=== PATIENT | male | born 1950 | race Two or more races ===

== ENCOUNTER 2019-03-31 17:15 | Inpatient (IN) | payer MEDICAID ==
[~2019-03-31] VITALS: Ht 175.3 cm; Wt 94.8 kg
[2019-03-31 17:25] VITALS: BP 122/97
--- NOTE | 2019-03-31 17:26 | Emergency Room Report ---
History of Present Illness General Chief Complaint: Generalized Weakness Source: Medical Record, EMS Present Illness HPI 68-year-old male past medical history of heart disease, hypertension, presents with hypotension x1 day unknown aggravating relieving factors severity is severe , constant, patient is mildly altered. History is limited. Patient keeps saying thank you Allergies: Coded Allergies: No Known Allergies (Unverified , 03/31/19) Patient History Limited by: medical condition - Altered mental status Past Medical History: see triage record Reviewed Nursing Documentation: PMH: Agreed; PSxH: Agreed Nursing Documentation-PMH Hx Cardiac Problems: Yes - CHF Hx Hypertension: Yes Review of Systems All Other Systems: limited - Altered mental status Physical Exam Vital Signs Date Time Temp Pulse Resp B/P (MAP) Pulse Ox O2 Delivery O2 Flow Rate FiO2 03/31/19 17:21 98.1 80 16 122/97 (105) 99 Room Air Sp02 EP Interpretation: reviewed, normal General Appearance: alert, moderate distress Head: normocephalic, atraumatic Eyes: bilateral eye PERRL, bilateral eye EOMI ENT: uvula midline, moist mucus membranes Neck: supple, thyroid normal, supple/symm/no masses Respiratory: lungs clear, no respiratory distress, no retraction, no accessory muscle use Cardiovascular #1: normal peripheral pulses, regular rate, rhythm, no edema, no gallop, no murmur Gastrointestinal: non tender, soft, no guarding, no rebound Musculoskeletal: normal inspection Neurologic: alert, responsive, other - Mildly altered keep saying thank you Psychiatric: mood/affect normal Skin: no rash, warm/dry Procedures Critical Care Time Critical Care Time Given the critical condition in which the patient arrived, the patient was immediately assessed by myself and the nurse, and cardiac monitoring initiated due to the potential for rapid decompensation of the patient's clinical condition. During the course of the patient's stay, I spent a considerable amount of time at the bedside performing serial re-evaluations of the patient's hemodynamic and clinical status because of the recognized potential threat to life or limb in this condition. I then had a chance to review not only all of the available current laboratory and radiographic studies obtained today, but I also reviewed old records available to me at the time. Additionally, any ancillary information available including seam closer records were reviewed. Sequential vital signs were obtained. Critical Care time of 36 minutes was performed exclusive of billable procedures. Central Line Central Line : Consent: Emergent Central Line Lumen: triple Maximal Sterile Barrier Tech: yes cap, yes mask, yes sterile gown, yes sterile gloves, yes large sterile sheet, yes hand hygiene, yes chlorhexidine prep Central Line Postion: femoral (R) Anesthesia: Lidocaine cc's of anesthesia: 5 Complications: none Central Line Post Position: sutured, good blood return Attempts: One Patient Tolerated: Well Complications: None Medical Decision Making Diagnostic Impression: Primary Impression: Hypotension Qualified Codes: I95.9 - Hypotension, unspecified Additional Impressions: ESAU (acute kidney injury) UTI (urinary tract infection) Qualified Codes: N30.00 - Acute cystitis without hematuria Sepsis Qualified Codes: A41.9 - Sepsis, unspecified organism; R65.20 - Severe sepsis without septic shock; N17.9 - Acute kidney failure, unspecified AMS (altered mental status) Qualified Codes: R41.82 - Altered mental status, unspecified ER Course 68-year-old male presents with altered mental status, ESAU, UTI Concerning for sepsis, central line placed emergently in the right femoral, patient keeps saying thank you unsure if patient is baseline We will start broad-spectrum antibiotics, fluid resuscitation Patient is slowly improving blood pressure slowly improving over 70 Reevaluation 7:33 PM, blood pressure is 87 systolic will start norepinephrine Patient admitted to Dr. Longo Laboratory Tests Test 03/31/19 17:52 03/31/19 18:15 White Blood Count 8.8 K/UL (4.8-10.8) Red Blood Count 5.25 M/UL (4.70-6.10) Hemoglobin 16.8 G/DL (14.2-18.0) Hematocrit 48.6 % (42.0-52.0) Mean Corpuscular Volume 93 FL (80-99) Mean Corpuscular Hemoglobin 32.0 PG (27.0-31.0) H Mean Corpuscular Hemoglobin Concent 34.6 G/DL (32.0-36.0) Red Cell Distribution Width 12.5 % (11.6-14.8) Platelet Count 173 K/UL (150-450) Mean Platelet Volume 7.2 FL (6.5-10.1) Neutrophils (%) (Auto) 58.6 % (45.0-75.0) Lymphocytes (%) (Auto) 28.5 % (20.0-45.0) Monocytes (%) (Auto) 9.7 % (1.0-10.0) Eosinophils (%) (Auto) 2.0 % (0.0-3.0) Basophils (%) (Auto) 1.1 % (0.0-2.0) Prothrombin Time 13.4 SEC (9.30-11.50) H Prothrombin Time INR 1.3 (0.9-1.1) H PTT 32 SEC (23-33) Urine Color Yellow Urine Appearance Clear Urine pH 5 (4.5-8.0) Urine Specific [place] 1.010 (1.005-1.035) Urine Protein 1+ (NEGATIVE) H Urine Glucose (UA) Negative (NEGATIVE) Urine Ketones Negative (NEGATIVE) Urine Blood 5+ (NEGATIVE) H Urine Nitrite Negative (NEGATIVE) Urine Bilirubin Negative (NEGATIVE) Urine Urobilinogen 1 MG/DL (0.0-1.0) H Urine Leukocyte Esterase 1+ (NEGATIVE) H Urine RBC 10-15 /HPF (0 - 0) H Urine WBC 5-10 /HPF (0 - 0) H Urine Squamous Epithelial Cells None /LPF (NONE/OCC) Urine Bacteria Moderate /HPF (NONE) H Urine Fine Granular Casts 2-4 /LPF (NONE) H Sodium Level 136 MMOL/L (136-145) Potassium Level 4.5 MMOL/L (3.5-5.1) Chloride Level 102 MMOL/L (98-107) Carbon Dioxide Level 28 MMOL/L (21-32) Anion Gap 6 mmol/L (5-15) Blood Urea Nitrogen 25 mg/dL (7-18) H Creatinine 1.8 MG/DL (0.55-1.30) H Estimate Glomerular Filtration Rate 37.7 mL/min (>60) Glucose Level 98 MG/DL (74-106) Calcium Level 8.7 MG/DL (8.5-10.1) Phosphorus Level 3.6 MG/DL (2.5-4.9) Magnesium Level 2.2 MG/DL (1.8-2.4) Total Bilirubin 1.1 MG/DL (0.2-1.0) H Direct Bilirubin 0.2 MG/DL (0.0-0.3) Aspartate Amino Transferase (AST) 19 U/L (15-37) Alanine Aminotransferase (ALT) 21 U/L (12-78) Alkaline Phosphatase 73 U/L (46-116) Total Creatine Kinase 50 U/L (26-308) Creatine Kinase MB 0.8 NG/ML (0.0-3.6) Creatine Kinase MB Relative Index 1.6 Troponin I 0.000 ng/mL (0.000-0.056) Pro-B-Type Natriuretic Peptide 737 pg/mL (0-125) H Total Protein 6.7 G/DL (6.4-8.2) Albumin 3.3 G/DL (3.4-5.0) L Globulin 3.4 g/dL Albumin/Globulin Ratio 1.0 (1.0-2.7) Lipase 210 U/L (73-393) Lactic Acid Level 1.40 mmol/L (0.4-2.0) EKG Diagnostic Results EKG Time: 17:13 EP Interpretation: Atrial fibrillation, rate 84, QTc 387, no acute ST elevations, left axis de Rhythm Strip Diag. Results Rhythm Strip Time: 19:31 EP Interpretation: yes Rate: 71 Rhythm: other - Atrial fibrillation Chest X-Ray Diagnostic Results Chest X-Ray Diagnostic Results : Chest X-Ray Ordered: Yes # of Views/Limited/Complete: 1 View Indication: Other - AMS EP Interpretation: Yes Interpretation: no consolidation, no effusion, no pneumothorax, no acute cardiopulmonary disease Impression: No acute disease Electronically Signed by: Diaz Ibarra MD Last Vital Signs Date Time Temp Pulse Resp B/P (MAP) Pulse Ox O2 Delivery O2 Flow Rate FiO2 03/31/19 17:21 98.1 80 16 122/97 (105) 99 Room Air Disposition: ADMITTED INPATIENT Condition: Serious Diaz Ibarra MD Mar 31, 2019 17:26
--- NOTE | 2019-03-31 17:28 | NUR ---
ED Nurse Note: Pt brought in by ambulance from an assisted living facility due to low blood pressure of 77/53. Pt was reported for not feeling well x 2 days. Denies CP or SOB. 350ml of NS was given en route. AAO x4 follows commands. Pt noted to be slow in answering questions. Respirations are even and non labored.
[2019-03-31 18:10] VITALS: BP 70/53
--- NOTE | 2019-03-31 18:10 | NUR ---
ED Nurse Note: SBP dropped down to 70/53. Dr Ibarra aware. Pt placed on trendeleberg position.
[2019-03-31 18:16] LABS: APPEARANCE,URINE CLEAR; BILIRUBIN, URINE NEGATIVE (NEGATIVE); GLUCOSE, URINE (UA) NEGATIVE (NEGATIVE); KETONES,URINE NEGATIVE (NEGATIVE); LEUKOCYTE ESTERASE ,URINE 1+ (NEGATIVE); NITRITE,URINE NEGATIVE (NEGATIVE); PH,URINE 5 (4.5-8.0); PROTEIN,URINE 1+ (NEGATIVE); UROBILINOGEN,URINE 1 MG/DL (0.0-1.0)
[2019-03-31 18:19] LABS: COLOR,URINE YELLOW; INR 1.3 (0.9-1.1)
[2019-03-31 18:21] LABS: ANION GAP 6 mmol/L (5-15); BASOPHILS % (AUTO) 1.1 % (0.0-2.0); BLOOD UREA NITROGEN 25 mg/dL (7-18); CALCIUM 8.7 MG/DL (8.5-10.1); CARBON DIOXIDE 28 MMOL/L (21-32); CHLORIDE 102 MMOL/L (98-107); CREATININE 1.8 MG/DL (0.55-1.30); HEMATOCRIT 48.6 % (42.0-52.0); HEMOGLOBIN 16.8 G/DL (14.2-18.0); LYMPHOCYTES % (AUTO) 28.5 % (20.0-45.0); MEAN CORPUSCULAR VOLUME 93 FL (80-99); MONOCYTES % (AUTO) 9.7 % (1.0-10.0); NEUTROPHILS % (AUTO) 58.6 % (45.0-75.0); PLATELET COUNT 173 K/UL (150-450); POTASSIUM 4.5 MMOL/L (3.5-5.1); RED BLOOD COUNT 5.25 M/UL (4.70-6.10); RED CELL DISTRIBUTION WIDTH 12.5 % (11.6-14.8); SODIUM 136 MMOL/L (136-145); WHITE BLOOD COUNT 8.8 K/UL (4.8-10.8)
[2019-03-31] MEDS ORDERED: Vancomycin 1.5gm/NS Premix 275 ML IVPB SCH (18:30)
[2019-03-31] MEDS ORDERED: fentaNYL 100 mcg/2 mL IV ONE (18:30)
[2019-03-31] MEDS ORDERED: Lidocaine 1% 10mg/ml/Epi 0.005mg/ml 10ml vial INJ ONE (18:30)
[2019-03-31] MEDS ORDERED: Cefepime HCl 2 GM in D5W 55 ML IVPB ONE (18:30)
[2019-03-31] MEDS ORDERED: fentaNYL 100 mcg/2 mL ONE (18:31)
[2019-03-31 18:34] LABS: ALANINE AMINOTRANSFERASE 21 U/L (12-78); ALBUMIN 3.3 G/DL (3.4-5.0); ALKALINE PHOSPHATASE 73 U/L (46-116); ASPARTATE AMINO TRANSFERASE 19 U/L (15-37); BILIRUBIN,TOTAL 1.1 MG/DL (0.2-1.0); CKMB 0.8 NG/ML (0.0-3.6); CREATINE KINASE 50 U/L (26-308); PHOSPHORUS 3.6 MG/DL (2.5-4.9)
[2019-03-31 18:37] LABS: BILIRUBIN,DIRECT 0.2 MG/DL (0.0-0.3)
--- NOTE | 2019-03-31 18:45 | NUR ---
ED Nurse Note: Consent signed by patient for right femoral central line with Dr Ibarra.
--- NOTE | 2019-03-31 19:16 | NUR ---
HAND-OFF: Report given to Марина AGUAYO.
[2019-03-31 19:19] VITALS: BP 93/68
--- NOTE | 2019-03-31 19:19 | NUR ---
ED Nurse Note: Received report from Emelyn AGUAYO. Patient alert and oriented, verbally responsive. No SOB. Breathing even and unlabored. BP 93/68, md aware.
[2019-03-31] MEDS ORDERED: Vancomycin 1.5 GM in NS 275 ML IVPB ONE (21:00)
[2019-03-31 21:30] VITALS: BP 99/77
--- NOTE | 2019-03-31 21:30 | NUR ---
ED Nurse Note: Report given to Isiah AGUAYO from ICU.
[2019-03-31] MEDS ORDERED: XARELTO10 MG ORAL (21:34)
[2019-03-31] MEDS ORDERED: LIPITOR40 MG ORAL (21:34)
--- NOTE | 2019-03-31 21:40 | NUR ---
TRANSFER TO FLOOR: Patient transferred to ICU as ordered. Report given to Isiah AGUAYO. Patient is alert abnd oriented, verbally responsive. Currently on Norepi and Vanco patent and infusing well. IV line on right leg central line, Right AC 20g, L hand 20g patent and intact. Belongings list done. No skin issues noted. Belongings was given to patient. Afebrile. VSS.
[2019-03-31 22:00] VITALS: BP 116/84
--- NOTE | 2019-03-31 22:00 | NUR ---
NURSE NOTES: Patient is transferred from ED via gurney. Patient is alert and oriented x4. Right femoral TLC intact with dry blood and running vanco 1.5g, NS bolus and levophed 2mcg/min. Vital signs stable. No acute distress/SOB noted. Patient said headache 2/10, aching. Skin intact and clean. Kept dry, clean and comfortable. Call light placed in easy reach. Will continue plan of care.
--- NOTE | 2019-03-31 22:14 | NUR ---
NURSE NOTES: Called Dr. Longo and left message for admission orders.
--- NOTE | 2019-03-31 22:44 | NUR ---
NURSE NOTES: Called Dr. Longo. He said he will call back after 15min.
[2019-03-31 23:00] VITALS: BP 126/85
--- NOTE | 2019-03-31 23:53 | NUR ---
NURSE NOTES: Received admission orders from Dr. Longo. Will continue plan of care.
[2019-04-01] VITALS (18 sets, daily range): BP systolic 91–137; BP diastolic 43–94
--- NOTE | 2019-04-01 00:15 | NUR ---
NURSE NOTES: Patient is saying he has asthma and if he can have breathing Tx. Called Dr. Longo and new order carried out.
[2019-04-01] MEDS ORDERED: Albuterol/Ipratropium 3ml neb HHN PRN ×2 (00:30→16:00)
[2019-04-01] MEDS: D5NS 1,000 ML IV SCH ×3 (00:33→15:45)
--- NOTE | 2019-04-01 00:35 | NUR ---
Note kleverone in EDM - 04/01/19 at 0042 by ALONDRA TRANSFER TO FLOOR: Patient transferred to ICU as ordered. Report given to Isiah AGUAYO. Patient is alert abnd oriented, verbally responsive. Currently on Norepi and Vanco patent and infusing well. IV line on right leg central line, Right AC 20g, L hand 20g patent and intact. Belongings list done. No skin issues noted. Belongings was given to patient. Afebrile. VSS.
--- NOTE | 2019-04-01 00:48 | NUR ---
NURSE NOTES: Beatrice/RT is at the bedside for breathing Tx.
[2019-04-01] MEDS ORDERED: Vancomycin 1.5 GM in NS 275 ML IVPB SCH ×2 (01:00→23:00)
--- NOTE | 2019-04-01 03:10 | NUR ---
NURSE NOTES: Changed right femoral TLC dressing. No bleeding no redness noted.
--- NOTE | 2019-04-01 04:00 | NUR ---
NURSE NOTES: Extra blanket given per patient request. Afebrile. BP stable, levo off.
--- NOTE | 2019-04-01 04:30 | NUR ---
NURSE NOTES: EKG done. Put it in the chart.
[2019-04-01 05:31] LABS: BASOPHILS % (AUTO) 0.9 % (0.0-2.0); EOSINOPHILS % (AUTO) 1.9 % (0.0-3.0); HEMATOCRIT 41.9 % (42.0-52.0); HEMOGLOBIN 14.6 G/DL (14.2-18.0); LYMPHOCYTES % (AUTO) 26.6 % (20.0-45.0); MEAN CORPUSCULAR VOLUME 93 FL (80-99); MONOCYTES % (AUTO) 8.8 % (1.0-10.0); NEUTROPHILS % (AUTO) 61.8 % (45.0-75.0); PLATELET COUNT 162 K/UL (150-450); RED BLOOD COUNT 4.51 M/UL (4.70-6.10); RED CELL DISTRIBUTION WIDTH 13.5 % (11.6-14.8); WHITE BLOOD COUNT 7.7 K/UL (4.8-10.8)
[2019-04-01 05:44] LABS: ALANINE AMINOTRANSFERASE 20 U/L (12-78); ALBUMIN 2.9 G/DL (3.4-5.0); ALKALINE PHOSPHATASE 69 U/L (46-116); ANION GAP 5 mmol/L (5-15); ASPARTATE AMINO TRANSFERASE 16 U/L (15-37); BILIRUBIN,TOTAL 0.6 MG/DL (0.2-1.0); BLOOD UREA NITROGEN 18 mg/dL (7-18); CALCIUM 7.7 MG/DL (8.5-10.1); CARBON DIOXIDE 27 MMOL/L (21-32); CHLORIDE 109 MMOL/L (98-107); CREATININE 1.4 MG/DL (0.55-1.30); PHOSPHORUS 2.3 MG/DL (2.5-4.9); POTASSIUM 4.3 MMOL/L (3.5-5.1); SODIUM 141 MMOL/L (136-145)
--- NOTE | 2019-04-01 06:00 | NUR ---
NURSE NOTES: Empty urinal. 200ml output.
--- NOTE | 2019-04-01 07:27 | NUR ---
HAND-OFF: Report given to DEDE Arroyo. Endorsed plan of care.
--- NOTE | 2019-04-01 08:15 | NUR ---
NURSE NOTES: Report received from DEDE Joyce. Patient afebrile at this time , on room air with no apparent acute distress .Pt is AFIB on the monitor and asymptomatic at this time.Patient is alert and oriented x 4, yi and luxembourger speaking with small Irish, able to make needs known at all the time.Abdomen soft and non distended with bowel sounds present in all 4 quadrants. Bilateral lungs sounds diminished. Patient assisted with mouth care done,able to turned and repositioned for skin management.HOB elevated to prevent aspiration.On cardiac diet and tolerate well at this time.Consumed 100% at breakfast.Patient use urinal , urine yellow straw with no apparent sediment . 3/4 Side rails up for safety precaution and turning and repositioning.Bed in low position and locked with bed alarm on.Call light within easy reach, will continue to monitor.
[2019-04-01] MEDS ORDERED: Xarelto 10mg tab ORAL SCH (09:00)
[2019-04-01] MEDS ORDERED: Cefepime HCl 1 GM in D5W 55 ML IVPB SCH (09:00)
[2019-04-01] MEDS ORDERED: Pantoprazole Inj IVP SCH (09:00)
--- NOTE | 2019-04-01 10:10 | Diagnostic Imaging Report ---
Indication:Elevated Bun and Creatinine. Technique: Grayscale and duplex Doppler imaging of the kidneys performed. Comparison: None Findings: The size, contour, and echogenicity of both kidneys are within normal limits. There is a right renal cyst 2.5 cm. Another right cyst 2.2 cm noted. The right kidney measures 9.2 cm. in length. The left kidney measures 10.9 cm. in length. There is a minimal hydronephrosis present within the left kidney. The IVC is patent. Urinary bladder is unremarkable. IMPRESSION: Minimal left hydronephrosis. Consider further evaluation as warranted clinically. Cysts within the right kidney
--- NOTE | 2019-04-01 10:34 | NUR ---
NURSE NOTES: Patient seen by Dr Rosario and made aware episode of Afib, Cardiac consult added with Dr Jackson.Order to transfer pt to Tele.Will follow up with other new orders.patient remains afib on the monitor and asymptomatic.Encourage to turned and repositioned.Kept on close monitoring.
--- NOTE | 2019-04-01 11:04 | Consultation ---
History of Present Illness General Date patient seen: Apr 01, 2019 Chief Complaint: Generalized Weakness Present Illness HPI 68-year-old male with PMHx of atrial fibrillation, on Xarelto, hypertension, presented ER by paramedics with CC of hypotension for one day History is limited. Pt is a poor historian and doesn't give much information. He was started on Levophed in ER and transferred to ICU. Currently pt looks comfortable and asymptomatic. Allergies: Coded Allergies: No Known Allergies (Unverified , 03/31/19) Medication History Scheduled Atorvastatin Calcium* (Lipitor*), 40 MG ORAL BEDTIME, (Reported) Rivaroxaban (Xarelto*), 10 MG ORAL DAILY, (Reported) Patient History Healthcare decision maker N Resuscitation status Full Code Advanced Directive on File No Past Medical/Surgical History Past Medical/Surgical History: (1) Atrial fibrillation Family History Family History: (1) Chronic anticoagulation (2) Atrial fibrillation Review of Systems All Other Systems: negative except mentioned in HPI Physical Exam General Appearance: WD/WN, no apparent distress Lines, tubes and drains: peripheral HEENT: normocephalic, atraumatic Neck: non-tender, normal alignment Respiratory/Chest: chest wall non-tender, lungs clear Cardiovascular/Chest: normal peripheral pulses, normal rate Abdomen: normal bowel sounds Genitourinary/Rectal: normal genital exam, normal rectal exam Last 24 Hour Vital Signs Date Time Temp Pulse Resp B/P (MAP) Pulse Ox O2 Delivery O2 Flow Rate FiO2 04/01/19 10:00 71 22 129/87 (101) 96 04/01/19 09:00 98.0 77 19 137/78 (97) 98 04/01/19 08:00 Room Air 04/01/19 08:00 64 04/01/19 08:00 63 22 110/66 (81) 98 04/01/19 07:00 98 22 94/67 (76) 97 04/01/19 06:51 53 23 96 Room Air 21 04/01/19 06:00 63 21 102/50 (67) 97 04/01/19 05:00 60 24 91/43 (59) 97 04/01/19 04:00 97.7 80 20 115/68 (84) 99 04/01/19 04:00 66 04/01/19 04:00 Room Air 04/01/19 03:00 73 16 99/50 (66) 99 04/01/19 02:00 73 26 116/77 (90) 97 04/01/19 01:00 96 23 111/74 (86) 96 04/01/19 00:48 93 24 100 Room Air 04/01/19 00:47 93 24 100 96 26 97 04/01/19 00:00 97.6 97 25 112/74 (87) 95 04/01/19 00:00 111 04/01/19 00:00 Room Air 03/31/19 23:00 99 24 126/85 (99) 95 03/31/19 22:30 Room Air 03/31/19 22:00 79 03/31/19 22:00 97.6 82 20 116/84 (95) 95 03/31/19 21:40 98.7 88 19 99/77 99 Room Air 03/31/19 21:30 98.7 88 20 99/77 99 Room Air 03/31/19 20:35 102/62 03/31/19 19:19 98.1 70 19 93/68 99 Room Air 03/31/19 18:10 98.1 65 17 70/53 100 Room Air 03/31/19 17:25 75 15 Room Air 03/31/19 17:25 98.1 75 15 122/97 99 Room Air 03/31/19 17:21 98.1 80 16 122/97 (105) 99 Room Air Intake and Output 03/31/19 04/01/19 18:59 06:59 Intake Total 1000 ml 768.75 ml Output Total 880 ml Balance 1000 ml -111.25 ml Intake Oral 360 ml IV Total 1000 ml 408.75 ml Output Urine Total 880 ml # Voids 1 Laboratory Tests Test 03/31/19 17:52 03/31/19 18:15 04/01/19 04:00 White Blood Count 8.8 K/UL (4.8-10.8) 7.7 K/UL (4.8-10.8) Red Blood Count 5.25 M/UL (4.70-6.10) 4.51 M/UL (4.70-6.10) L Hemoglobin 16.8 G/DL (14.2-18.0) 14.6 G/DL (14.2-18.0) Hematocrit 48.6 % (42.0-52.0) 41.9 % (42.0-52.0) L Mean Corpuscular Volume 93 FL (80-99) 93 FL (80-99) Mean Corpuscular Hemoglobin 32.0 PG (27.0-31.0) H 32.3 PG (27.0-31.0) H Mean Corpuscular Hemoglobin Concent 34.6 G/DL (32.0-36.0) 34.9 G/DL (32.0-36.0) Red Cell Distribution Width 12.5 % (11.6-14.8) 13.5 % (11.6-14.8) Platelet Count 173 K/UL (150-450) 162 K/UL (150-450) Mean Platelet Volume 7.2 FL (6.5-10.1) 7.1 FL (6.5-10.1) Neutrophils (%) (Auto) 58.6 % (45.0-75.0) 61.8 % (45.0-75.0) Lymphocytes (%) (Auto) 28.5 % (20.0-45.0) 26.6 % (20.0-45.0) Monocytes (%) (Auto) 9.7 % (1.0-10.0) 8.8 % (1.0-10.0) Eosinophils (%) (Auto) 2.0 % (0.0-3.0) 1.9 % (0.0-3.0) Basophils (%) (Auto) 1.1 % (0.0-2.0) 0.9 % (0.0-2.0) Prothrombin Time 13.4 SEC (9.30-11.50) H Prothromb Time International Ratio 1.3 (0.9-1.1) H Activated Partial Thromboplast Time 32 SEC (23-33) Urine Color Yellow Urine Appearance Clear Urine pH 5 (4.5-8.0) Urine Specific [place] 1.010 (1.005-1.035) Urine Protein 1+ (NEGATIVE) H Urine Glucose (UA) Negative (NEGATIVE) Urine Ketones Negative (NEGATIVE) Urine Blood 5+ (NEGATIVE) H Urine Nitrite Negative (NEGATIVE) Urine Bilirubin Negative (NEGATIVE) Urine Urobilinogen 1 MG/DL (0.0-1.0) H Urine Leukocyte Esterase 1+ (NEGATIVE) H Urine RBC 10-15 /HPF (0 - 0) H Urine WBC 5-10 /HPF (0 - 0) H Urine Squamous Epithelial Cells None /LPF (NONE/OCC) Urine Bacteria Moderate /HPF (NONE) H Urine Fine Granular Casts 2-4 /LPF (NONE) H Sodium Level 136 MMOL/L (136-145) 141 MMOL/L (136-145) Potassium Level 4.5 MMOL/L (3.5-5.1) 4.3 MMOL/L (3.5-5.1) Chloride Level 102 MMOL/L (98-107) 109 MMOL/L (98-107) H Carbon Dioxide Level 28 MMOL/L (21-32) 27 MMOL/L (21-32) Anion Gap 6 mmol/L (5-15) 5 mmol/L (5-15) Blood Urea Nitrogen 25 mg/dL (7-18) H 18 mg/dL (7-18) Creatinine 1.8 MG/DL (0.55-1.30) H 1.4 MG/DL (0.55-1.30) H Estimat Glomerular Filtration Rate 37.7 mL/min (>60) 50.4 mL/min (>60) Glucose Level 98 MG/DL (74-106) 142 MG/DL (74-106) H Calcium Level 8.7 MG/DL (8.5-10.1) 7.7 MG/DL (8.5-10.1) L Phosphorus Level 3.6 MG/DL (2.5-4.9) 2.3 MG/DL (2.5-4.9) L Magnesium Level 2.2 MG/DL (1.8-2.4) 1.8 MG/DL (1.8-2.4) Total Bilirubin 1.1 MG/DL (0.2-1.0) H 0.6 MG/DL (0.2-1.0) Direct Bilirubin 0.2 MG/DL (0.0-0.3) Aspartate Amino Transf (AST/SGOT) 19 U/L (15-37) 16 U/L (15-37) Alanine Aminotransferase (ALT/SGPT) 21 U/L (12-78) 20 U/L (12-78) Alkaline Phosphatase 73 U/L (46-116) 69 U/L (46-116) Total Creatine Kinase 50 U/L (26-308) Creatine Kinase MB 0.8 NG/ML (0.0-3.6) Creatine Kinase MB Relative Index 1.6 Troponin I 0.000 ng/mL (0.000-0.056) 0.000 ng/mL (0.000-0.056) Pro-B-Type Natriuretic Peptide 737 pg/mL (0-125) H Total Protein 6.7 G/DL (6.4-8.2) 5.9 G/DL (6.4-8.2) L Albumin 3.3 G/DL (3.4-5.0) L 2.9 G/DL (3.4-5.0) L Globulin 3.4 g/dL 3.0 g/dL Albumin/Globulin Ratio 1.0 (1.0-2.7) 1.0 (1.0-2.7) Lipase 210 U/L (73-393) Lactic Acid Level 1.40 mmol/L (0.4-2.0) 1.10 mmol/L (0.4-2.0) Microbiology Date/Time Source Procedure Growth Status 03/31/19 17:52 Urine,Clean Catch Urine Culture - Preliminary NO GROWTH Resulted 03/31/19 21:30 Rectum Received Height (Feet): 5 Height (Inches): 9.00 Weight (Pounds): 204 Medications Current Medications Medications (Trade) Dose Ordered Sig/Odalys Route PRN Reason Start Time Stop Time Status Last Admin Dose Admin Acetaminophen (Tylenol) 650 mg Q4H PRN ORAL Mild Pain/Temp > 100.5 04/01/19 01:00 05/01/19 00:59 04/01/19 01:00 Albuterol/ Ipratropium (Albuterol/ Ipratropium) 3 ml Q4H PRN HHN Shortness of Breath 04/01/19 00:30 04/06/19 00:29 04/01/19 00:49 Atorvastatin Calcium (Lipitor) 40 mg BEDTIME ORAL 04/01/19 21:00 05/01/19 20:59 Cefepime HCl 1 gm/ Dextrose 55 ml @ 110 mls/hr EVERY 12 HOURS IVPB 04/01/19 09:00 04/08/19 08:59 04/01/19 09:49 Chlorhexidine Gluconate (Eliza-Hex 2%) 1 applic DAILY@2000 TOPIC 04/01/19 20:00 05/01/19 19:59 Dextrose/Sodium Chloride 1,000 ml @ 75 mls/hr [id number] IV 03/31/19 23:45 04/30/19 23:44 04/01/19 00:33 Norepinephrine Bitartrate 4 mg/ Dextrose 250 ml @ 0 mls/hr Q24H IV 04/01/19 00:00 05/01/19 00:00 Pantoprazole (Protonix) 40 mg DAILY IVP 04/01/19 09:00 05/01/19 08:59 04/01/19 09:22 Rivaroxaban (Xarelto) 15 mg QPM ORAL 04/01/19 16:30 05/01/19 16:29 Vancomycin HCl (Vanco rx to dose) 1 ea DAILY PRN MISC Per rx protocol 03/31/19 23:45 04/30/19 23:44 Vancomycin HCl 1.5 gm/Sodium Chloride 275 ml @ 183.333 mls/hr 2300 IVPB 04/01/19 23:00 04/06/19 22:59 Assessment/Plan Problem List: (1) Sepsis ICD Codes: A41.9 - Sepsis, unspecified organism SNOMED: 63151197 Qualifiers: Qualified Codes: A41.9 - Sepsis, unspecified organism; R65.20 - Severe sepsis without septic shock; N17.9 - Acute kidney failure, unspecified (2) Atrial fibrillation ICD Codes: I48.91 - Unspecified atrial fibrillation SNOMED: 29956456 (3) Hypotension ICD Codes: I95.9 - Hypotension, unspecified SNOMED: 82121334, 8040163 Qualifiers: Qualified Codes: I95.9 - Hypotension, unspecified (4) ESAU (acute kidney injury) ICD Codes: N17.9 - Acute kidney failure, unspecified SNOMED: 03210809, [id number] Assessment/Plan: urine cultures iv fluid echocardiogram renal studies urine electrolytes renal US heart rate controlled without any meds Fco Rosario MD Apr 01, 2019 11:04
[2019-04-01 11:30] LABS: CREATINE KINASE 53 U/L (26-308)
--- NOTE | 2019-04-01 12:21 | NUR ---
NURSE NOTES: Patient help in turning and repositioned. Hemodynamically stable. Remains Afib on the monitor. Urine specimen collected and send to labs.Will continue to monitor
--- NOTE | 2019-04-01 12:44 | Diagnostic Imaging Report ---
Indication: Dyspnea Comparison: None A single view chest radiograph was obtained. Findings: Cardiomediastinal appearance is within normal limits for age. The lungs are clear. Pulmonary vascularity is appropriate. The diaphragmatic contour is smooth and costophrenic angles are sharp. No pleural effusions are identified. The bones are osteopenic. Impression: No acute findings
--- NOTE | 2019-04-01 13:33 | NUR ---
NURSE NOTES: Received report from Dina AGUAYO. Patient resting comfortably at this time , watching TV. V/S stable - classroom monitor shows controlled A-Fib.IV site patent - with D5NS infusing at 75 cc/hr.
--- NOTE | 2019-04-01 14:32 | NUR ---
NURSE NOTES: Dr. Longo here , seen and examined the patient- updated with patient's condition- made aware patient with order to transfer to Tele
--- NOTE | 2019-04-01 14:38 | NUR ---
NURSE NOTES: Right groin TLC removed as ordered without difficulty-light pressure dressing applied- no bleeding noted. Instructed patient to keep his right leg straight and report to RN if he notice or feel any bleeding. patient verbalized understanding
--- NOTE | 2019-04-01 14:56 | History & Physical ---
History and Physical History & Physicial Mike Longo MD Apr 01, 2019 14:56
--- NOTE | 2019-04-01 15:06 | NUR ---
NURSE NOTES: Transferred to Tele unit- room 209-2 via bed, patient awake and alert- denies any pain / discomfort at this time. SL # 20 patent @ right AC and # 20 @ LH with D5NS at 75 cc/hr.Report given to Beti AGUAYO.Endorsed
--- NOTE | 2019-04-01 15:10 | NUR ---
NURSE NOTES: Received report from DEDE Monzon @ ICU. The patient is resting on the bed without acute distress or shortness of breath. The patient's bed in the lowest position, call light in reach, and fall and aspiration precaution reinforced. The patient has R AC 20G and L hand 20G D5NS @ 75cc/hr, which are intact and patent. The patient's skin is intact. The patient's vital signs are stable. Will continue plan of care.
[2019-04-01] MEDS: Xarelto 15mg tab ORAL SCH (16:27)
[2019-04-01] MEDS ORDERED: Xarelto 15mg tab ORAL SCH (16:30)
--- NOTE | 2019-04-01 17:30 | NUR ---
NURSE NOTES: Urine collection done and sent the sample down to the lab. Will continue plan of care.
--- NOTE | 2019-04-01 17:48 | NUR ---
NURSE NOTES: The patient is stable in terms of physical symptoms and vital signs. Will continue plan of care.
--- NOTE | 2019-04-01 19:15 | History and Physical Report ---
DATE OF ADMISSION: 03/31/2019 CHIEF COMPLAINT: Hypertension. HISTORY OF PRESENT ILLNESS: This is a 68-year-old Taj[place] gentleman with past medical history significant for hypertension as well as cardiac arrhythmias and atrial fibrillation, who presented to the emergency room after he was found to be feeling weak and tired. Shortly after initial evaluation, the patient was noted to be hypertensive. He denies any chest pain or shortness of breath. History is very limited secondary to the patient's status. History mostly taken from the ER chart and the patient has language barrier. Upon arrival to the emergency room, the patient was noted that blood pressure was 122/97 and repeat blood pressure was noted to be 94/74. Subsequently, the patient was admitted to ICU with hypotension and acute kidney injury. PAST MEDICAL HISTORY AND PAST SURGICAL HISTORY: As above. History of hypertension, dyslipidemia, chronic atrial fibrillation. MEDICATIONS AT HOME: Significant for atorvastatin and rivaroxaban. ALLERGIES: No known drug allergies. SOCIAL HISTORY: The patient currently smokes. Denies any substance abuse. Denies any alcohol abuse. FAMILY HISTORY: Noncontributory. REVIEW OF SYSTEMS: Mostly as above. Denies any dysuria, frequency, or hematuria. Denies any fever or chills. Denies any hemoptysis or hematochezia. PHYSICAL EXAMINATION: VITAL SIGNS: On admission from the ER, temperature is 98.1, pulse of 80, respirations 16, and blood pressure 122/97 and repeat one was 99/74. GENERAL: The patient is awake and responsive, in no acute distress. HEAD AND NECK: Pupils are reactive to light. Extraocular movements intact. Neck was supple. No JVD. LUNGS: Good air entry. No wheezing or rales. HEART: S1, S2. Irregular. No murmurs or gallops. ABDOMEN: Soft, nondistended, and nontender. Mildly obese. EXTREMITIES: No cyanosis, clubbing, or edema. NEUROLOGIC: DRY CELL SEALER II through XII grossly intact. Motor is 5/5 in all extremities. LABORATORY DATA: On admission, WBC of 8, hemoglobin 16, hematocrit 46, and platelet is 173,000. Sodium 136, potassium 4.5, chloride 102, bicarbonate 28, BUN 25, creatinine 1.8. First troponin less than 0.00. ProBNP of 737. Lipase is 210. PT 13, INR 1.3, and PTT of 32. Urinalysis is +1 leukocyte, +10 to 15 rbc's, moderate bacteria, 2 to 4 fine granulation casts. Chest x-ray, no acute finding. Renal ultrasound showed a mild left hydronephrosis. Consider further evaluation as warranted. Cyst within the right kidney. ASSESSMENT: 1. Hypotension, possible due to the severe volume depletion and dehydration, however, cannot rule out infectious etiology such as UTI. 2. Sepsis, possible due to urinary tract infection. 3. Atrial fibrillation. 4. Acute kidney injury. 5. Dyslipidemia. PLAN: Admit the patient to ICU. We will follow up with 2D echo. Follow up with the cultures including urine culture, broad-spectrum antibiotic with vancomycin and cefepime. Continue under rivaroxaban for atrial fibrillation. Code status is Full Code. DVT prophylaxis, he is under Xarelto. Code status is Full Code. Follow up with Dr. Rosario, Pulmonary Critical Care. Mike Longo M.D. DR: TINO JOB#: [id number] CC:
--- NOTE | 2019-04-01 19:20 | NUR ---
HAND-OFF: Report given to DEDE Caldwell. The patient is resting on the bed without acute distress or shortness of breath. The patient's bed in the lowest position, call light in reach, and fall and aspiration precaution reinforced. IV site intact and patent. Endorsed plan of care.
--- NOTE | 2019-04-01 19:49 | NUR ---
Received report from DEDE Bang. Pt resting on bed. No shortness of breath. no acue distress. Bed in lowest position. call light within reach. Fall and aspiration precautions reinforced with patient. Patient with two IV lines both patent and flushing. Intact dressings. VSS. Will continue with the plan of care endorsed to me.
[2019-04-01 19:52] LABS: APPEARANCE,URINE CLEAR; BILIRUBIN, URINE NEGATIVE (NEGATIVE); COLOR,URINE PALE YELLOW; GLUCOSE, URINE (UA) NEGATIVE (NEGATIVE); KETONES,URINE NEGATIVE (NEGATIVE); LEUKOCYTE ESTERASE ,URINE NEGATIVE (NEGATIVE); NITRITE,URINE NEGATIVE (NEGATIVE); PH,URINE 5 (4.5-8.0); PROTEIN,URINE NEGATIVE (NEGATIVE); UROBILINOGEN,URINE NORMAL MG/DL (0.0-1.0)
--- NOTE | 2019-04-01 19:54 | Cardiology Progress Note ---
Assessment/Plan Assessment/Plan perm afib on anticoag with xarelto heart rate control off med dehydrated at admission improved ok to dc to home with fu with pmd as out pt form [facility] if rate stable overnite now that bp improved iwth hydrtaion [id number] Objective Last 24 Hour Vital Signs Date Time Temp Pulse Resp B/P (MAP) Pulse Ox O2 Delivery O2 Flow Rate FiO2 04/01/19 16:30 97.3 59 20 121/66 (84) 97 04/01/19 16:00 74 04/01/19 16:00 Room Air 04/01/19 15:10 97.2 65 20 97/69 (78) 97 04/01/19 14:00 66 21 107/60 (76) 04/01/19 13:00 79 25 123/71 (88) 04/01/19 12:00 97.7 69 24 127/94 (105) 99 04/01/19 12:00 Room Air 04/01/19 12:00 64 04/01/19 11:00 70 24 94/74 (81) 99 04/01/19 10:00 71 22 129/87 (101) 96 04/01/19 09:00 98.0 77 19 137/78 (97) 98 04/01/19 08:00 Room Air 04/01/19 08:00 64 04/01/19 08:00 63 22 110/66 (81) 98 04/01/19 07:00 98 22 94/67 (76) 97 04/01/19 06:51 53 23 96 Room Air 21 04/01/19 06:00 63 21 102/50 (67) 97 04/01/19 05:00 60 24 91/43 (59) 97 04/01/19 04:00 97.7 80 20 115/68 (84) 99 04/01/19 04:00 66 04/01/19 04:00 Room Air 04/01/19 03:00 73 16 99/50 (66) 99 04/01/19 02:00 73 26 116/77 (90) 97 04/01/19 01:00 96 23 111/74 (86) 96 04/01/19 00:48 93 24 100 Room Air 04/01/19 00:47 93 24 100 96 26 97 04/01/19 00:00 97.6 97 25 112/74 (87) 95 04/01/19 00:00 111 04/01/19 00:00 Room Air 03/31/19 23:00 99 24 126/85 (99) 95 03/31/19 22:30 Room Air 03/31/19 22:00 79 03/31/19 22:00 97.6 82 20 116/84 (95) 95 03/31/19 21:40 98.7 88 19 99/77 99 Room Air 03/31/19 21:30 98.7 88 20 99/77 99 Room Air 03/31/19 20:35 102/62 Intake and Output 03/31/19 04/01/19 19:00 07:00 Intake Total 1000 ml 843.75 ml Output Total 880 ml Balance 1000 ml -36.25 ml Intake Oral 360 ml IV Total 1000 ml 483.75 ml Output Urine Total 880 ml # Voids 1 Laboratory Tests Test 04/01/19 04:00 04/01/19 17:00 White Blood Count 7.7 K/UL (4.8-10.8) Red Blood Count 4.51 M/UL (4.70-6.10) L Hemoglobin 14.6 G/DL (14.2-18.0) Hematocrit 41.9 % (42.0-52.0) L Mean Corpuscular Volume 93 FL (80-99) Mean Corpuscular Hemoglobin 32.3 PG (27.0-31.0) H Mean Corpuscular Hemoglobin Concent 34.9 G/DL (32.0-36.0) Red Cell Distribution Width 13.5 % (11.6-14.8) Platelet Count 162 K/UL (150-450) Mean Platelet Volume 7.1 FL (6.5-10.1) Neutrophils (%) (Auto) 61.8 % (45.0-75.0) Lymphocytes (%) (Auto) 26.6 % (20.0-45.0) Monocytes (%) (Auto) 8.8 % (1.0-10.0) Eosinophils (%) (Auto) 1.9 % (0.0-3.0) Basophils (%) (Auto) 0.9 % (0.0-2.0) Sodium Level 141 MMOL/L (136-145) Potassium Level 4.3 MMOL/L (3.5-5.1) Chloride Level 109 MMOL/L (98-107) H Carbon Dioxide Level 27 MMOL/L (21-32) Anion Gap 5 mmol/L (5-15) Blood Urea Nitrogen 18 mg/dL (7-18) Creatinine 1.4 MG/DL (0.55-1.30) H Estimat Glomerular Filtration Rate 50.4 mL/min (>60) Glucose Level 142 MG/DL (74-106) H Lactic Acid Level 1.10 mmol/L (0.4-2.0) Uric Acid 6.6 MG/DL (2.6-7.2) Calcium Level 7.7 MG/DL (8.5-10.1) L Phosphorus Level 2.3 MG/DL (2.5-4.9) L Magnesium Level 1.8 MG/DL (1.8-2.4) Total Bilirubin 0.6 MG/DL (0.2-1.0) Aspartate Amino Transf (AST/SGOT) 16 U/L (15-37) Alanine Aminotransferase (ALT/SGPT) 20 U/L (12-78) Alkaline Phosphatase 69 U/L (46-116) Total Creatine Kinase 53 U/L (26-308) Troponin I 0.000 ng/mL (0.000-0.056) Total Protein 5.9 G/DL (6.4-8.2) L Albumin 2.9 G/DL (3.4-5.0) L Globulin 3.0 g/dL Albumin/Globulin Ratio 1.0 (1.0-2.7) Urine Color Pending Urine Appearance Pending Urine pH Pending Urine Specific [place] Pending Urine Protein Pending Urine Glucose (UA) Pending Urine Ketones Pending Urine Blood Pending Urine Nitrite Pending Urine Bilirubin Pending Urine Urobilinogen Pending Urine Leukocyte Esterase Pending Urine RBC Pending Urine WBC Pending Urine Squamous Epithelial Cells Pending Urine Bacteria Pending Urine Eosinophils Pending Urine Osmolality Pending Urine Random Creatinine Pending Urine Random Microalbumin Pending Urine Random Sodium Pending Urine Microalbumin/Creatinine Ratio Pending Microbiology Date/Time Source Procedure Growth Status 03/31/19 17:52 Urine,Clean Catch Urine Culture - Preliminary NO GROWTH Resulted 03/31/19 21:30 Rectum Received Won Martínez MD Apr 01, 2019 19:54
[2019-04-01] MEDS ORDERED: Dyna-Hex 2% Top Sol 2oz TOPIC SCH (20:00)
--- NOTE | 2019-04-01 20:45 | Consultation ---
DATE OF CONSULTATION: 04/01/2019 CARDIOLOGY CONSULTATION CONSULTING PHYSICIAN: Won Martínez M.D. REFERRING PHYSICIAN: Fco Rosario M.D. REASON FOR REFERRAL: Atrial fibrillation. HISTORY OF PRESENT ILLNESS: This is an elderly gentleman. It is difficult to understand the patient. Apparently speaks Portuguese only. He is a [place]. He has history that is listed in the chart. He presented to the hospital because of dizziness and fall and ringing in the ears and low blood pressure. The facilities technician run sheet indicates that they found him supine in bed complaining of dizziness feeling in the past 2 days. Caregiver stated that the patient's blood pressure has been low. IV fluids administered by the paramedics. Lungs were clear. Blood pressure stayed in the same and another bolus of fluid was administered and the patient was brought to the emergency room. His initial blood pressure was 77/46 and eventually that has improved. PAST MEDICAL HISTORY: The chart indicates that he has a past medical history of hypertension as well as atrial fibrillation and hyperlipidemia. MEDICATIONS: He is on medications at home. He is on Xarelto as well as Lipitor. ALLERGIES: None. SOCIAL HISTORY: He does smoke at the present time, but not much he says. No alcohol. No drugs. REVIEW OF SYSTEMS: GASTROINTESTINAL: Negative. PHYSICAL EXAMINATION: GENERAL: Shows to be obese gentleman in no respiratory distress. NECK: Supple. No jugular venous distention. LUNGS: Clear to auscultation and percussion. CARDIAC: Irregular. Not tachycardic. Not bradycardic. No heaves or thrills. ABDOMEN: Soft, obese. Positive bowel sounds. Nontender. EXTREMITIES: There is no clubbing, cyanosis, or edema. NEUROLOGIC: He is awake and responsive. LABORATORY AND DIAGNOSTIC DATA: White count of 7.7, hemoglobin 14.6, and platelet count of 162. Sodium 141, potassium 4.3, chloride 109, bicarb 27, BUN of 18, creatinine 1.4, and glucose of 142. Troponin was negative on two separate occasions. His creatinine at the time of admission was up to 1.8 and his BUN at the time of admission was 25 and his sodium at the time of admission was 136. His lactic acid is now fine. Total CPK of 53. His imaging, chest x-ray shows no acute findings. He did have a renal ultrasound that showed mild left hydronephrosis. His electrocardiogram shows atrial fibrillation. Ventricular response appears to be controlled. His most recent blood pressure 121/66, heart rate of 59, temperature 97.3. ASSESSMENT AND PLAN: 1. Permanent atrial fibrillation. 2. Dizziness, likely secondary to hypotension. Hypotension likely secondary to volume depletion. 3. History of hyperlipidemia. 4. Renal insufficiency, partially responsive to fluids. This patient was seen in cardiac consultation. Does not appear to be in any kind of respiratory distress. Cardiac enzymes are negative. His atrial fibrillation appears to be chronic and rate is controlled not on any beta-blockers. He should be continued on Xarelto for stroke prevention. He should follow up with primary fender finisher. If his blood pressure is improved, hopefully he will be able to leave the hospital relatively soon. Won Martínez M.D. DR: PILY JOB#: [id number] CC:
[2019-04-01] MEDS ORDERED: Atorvastatin 20mg tab ORAL SCH (21:00)
[2019-04-01] MEDS: Atorvastatin 20mg tab ORAL SCH (22:11)
[2019-04-01] MEDS: Cefepime HCl 1 GM in D5W 55 ML IVPB SCH (22:13)
[2019-04-01] MEDS: Vancomycin 1.5gm/NS Premix 275 ML IVPB SCH (23:31)
--- NOTE | 2019-04-01 23:36 | NUR ---
Dr was paged because pt requesting something for sleep. Dr Longo ordered Frances prn see orders for dtails.
[2019-04-01] MEDS ORDERED: Zolpidem 5mg tab ORAL PRN (23:45)
[2019-04-02] VITALS: BP 101/55
[2019-04-02 04:00] VITALS: BP 114/68
[2019-04-02] MEDS: D5NS 1,000 ML IV SCH ×2 (05:07→16:27)
--- NOTE | 2019-04-02 07:12 | NUR ---
HAND-OFF: Report given to Beti AGUAYO. Patient is stable. Endorsed plan of care.
--- NOTE | 2019-04-02 07:20 | NUR ---
NURSE NOTES: Received report from DEDE Caldwell. The patient is having a breakfast on the bed without acute distress or shortness of breath. The patient's bed in the lowest position, call light in reach, and fall and aspiration precaution reinforced. IV site intact and patent. Per Javi, the patient's blood pressure has been stable over night and was around 100s-120s systolic. The patient denies of chest pain, dizziness, or shortness of breath. Will continue plan of care.
[2019-04-02 08:00] VITALS: BP 100/72
[2019-04-02] MEDS: Pantoprazole Inj IVP SCH (08:28)
[2019-04-02] MEDS: Cefepime HCl 1 GM in D5W 55 ML IVPB SCH ×2 (08:30→20:26)
[2019-04-02 08:34] LABS: BASOPHILS % (AUTO) 0.9 % (0.0-2.0); HEMATOCRIT 45.3 % (42.0-52.0); HEMOGLOBIN 15.3 G/DL (14.2-18.0); LYMPHOCYTES % (AUTO) 25.9 % (20.0-45.0); MEAN CORPUSCULAR VOLUME 93 FL (80-99); MONOCYTES % (AUTO) 7.8 % (1.0-10.0); NEUTROPHILS % (AUTO) 62.4 % (45.0-75.0); PLATELET COUNT 173 K/UL (150-450); RED BLOOD COUNT 4.86 M/UL (4.70-6.10); RED CELL DISTRIBUTION WIDTH 13.2 % (11.6-14.8)
[2019-04-02 09:18] LABS: ALANINE AMINOTRANSFERASE 20 U/L (12-78); ALBUMIN 3.1 G/DL (3.4-5.0); ALBUMIN/GLOBULIN RATIO 0.9 (1.0-2.7); ALKALINE PHOSPHATASE 73 U/L (46-116); ANION GAP 5 mmol/L (5-15); ASPARTATE AMINO TRANSFERASE 19 U/L (15-37); BILIRUBIN,TOTAL 0.7 MG/DL (0.2-1.0); BLOOD UREA NITROGEN 12 mg/dL (7-18); CALCIUM 8.8 MG/DL (8.5-10.1); CARBON DIOXIDE 29 MMOL/L (21-32); CHLORIDE 108 MMOL/L (98-107); CREATININE 1.3 MG/DL (0.55-1.30); PHOSPHORUS 2.6 MG/DL (2.5-4.9); POTASSIUM 4.6 MMOL/L (3.5-5.1); SODIUM 142 MMOL/L (136-145)
--- NOTE | 2019-04-02 10:04 | NUR ---
NURSE NOTES: Notified Dr. Hale regarding 1.5 second pause on heart monitor. Per Dr. Hale, no new order. Will continue plan of care.
[2019-04-02 12:00] VITALS: BP 107/83
--- NOTE | 2019-04-02 12:34 | NUR ---
CASE MANAGEMENT: INITIAL REVIEW 68 YO M JUANITA FROM MAN CC: HYPOTENSION PMHx: CHF. HTN. SI:ACUTE KIDNEY FAILURE. T 98.1 HR 80 RR 16 B/P 122/97 SATS 99% ON RA BUN 25 CR 1.8 TBILI 1.1 BNP 737 IS: NS BOLUS X2 FENTANYL IV X1 CEFEPIME IV X1 LEVOPHED IV PER PARAMETERS PATIENT ADMITTED TO TELE 03/31/2019 @ 2001 DCP: PATIENT TO BE DISCHARGED TO HOME ONCE MEDICALLY CLEARED. 04/01/2019 SI:ACUTE KIDNEY FAILURE. T 97.9 HR 90 RR 20 B/P 102/53 SATS 97% ON RA CL 109 CR 1.4 GLU 142 CA 7.7 PHOS 2.3 IS: CEFEPIME IV Q12H LIPITOR PO QHS PROTONIX IV QD VANCO IV Q24H XARELTO PO QPM TELE STATUS DCP: PATIENT TO BE DISCHARGED TO HOME ONCE MEDICALLY CLEARED. 04/02/2019 SI:ACUTE KIDNEY FAILURE. T 97.7 HR 61 RR 20 B/P 100/72 SATS 97% ON RA CL 108 GLU 128 CRP 1.5 IS: CEFEPIME IV Q12H LIPITOR PO QHS PROTONIX IV QD VANCO IV Q24H XARELTO PO QPM TELE STATUS DCP: PATIENT TO BE DISCHARGED TO HOME ONCE MEDICALLY CLEARED. Addendum: 04/02/19 at 1619 by Yesenia Hagan CM INTERQUAL MET
--- NOTE | 2019-04-02 13:00 | NUR ---
NURSE NOTES: The patient is stable without acute distress or shortness of breath. Will continue plan of care.
[2019-04-02 16:00] VITALS: BP 109/50
[2019-04-02] MEDS: Xarelto 15mg tab ORAL SCH (16:26)
--- NOTE | 2019-04-02 16:26 | Internal Med Progress Note ---
Subjective Date of Service: Apr 02, 2019 Physician Name Mega Robbins Attending Physician Mike Longo MD Current Medications Medications (Trade) Dose Ordered Sig/Odalys Route PRN Reason Start Time Stop Time Status Last Admin Dose Admin Acetaminophen (Tylenol) 650 mg Q4H PRN ORAL Mild Pain/Temp > 100.5 04/01/19 16:00 05/01/19 15:59 04/02/19 09:27 Albuterol/ Ipratropium (Albuterol/ Ipratropium) 3 ml Q4H PRN HHN Shortness of Breath 04/01/19 16:00 04/06/19 15:59 Atorvastatin Calcium (Lipitor) 40 mg BEDTIME ORAL 04/01/19 21:00 05/01/19 20:59 04/01/19 22:11 Cefepime HCl 1 gm/ Dextrose 55 ml @ 110 mls/hr EVERY 12 HOURS IVPB 04/01/19 21:00 04/08/19 08:59 04/02/19 08:30 Dextrose/Sodium Chloride 1,000 ml @ 75 mls/hr [id number] IV 04/01/19 15:15 04/30/19 23:44 04/02/19 05:07 Pantoprazole (Protonix) 40 mg DAILY IVP 04/02/19 09:00 05/01/19 08:59 04/02/19 08:28 Rivaroxaban (Xarelto) 15 mg QPM ORAL 04/01/19 16:30 05/01/19 16:29 04/01/19 16:27 Vancomycin HCl (Vanco rx to dose) 1 ea DAILY PRN MISC Per rx protocol 04/02/19 09:00 04/30/19 23:44 Vancomycin/Sodium Chloride 275 ml @ 183.333 mls/hr Q24H IVPB 04/01/19 23:00 04/06/19 22:59 04/01/19 23:31 Zolpidem Tartrate (Ambien) 5 mg HSPRN PRN ORAL Insomnia 04/01/19 23:45 04/08/19 23:44 Allergies: Coded Allergies: No Known Allergies (Unverified , 03/31/19) ROS Limited/Unobtainable: No Constitutional: Reports: weakness HEENT: Reports: no symptoms Cardiovascular: Reports: no symptoms Respiratory: Reports: no symptoms Gastrointestinal/Abdominal: Reports: no symptoms Genitourinary: Reports: no symptoms Neurologic/Psychiatric: Reports: no symptoms Subjective 68 YO M admitted with gen weakness and fatigue. Now hypotension. Cover for Int Jan-Dr Longo Objective Last Vital Signs Date Time Temp Pulse Resp B/P (MAP) Pulse Ox O2 Delivery O2 Flow Rate FiO2 04/02/19 12:00 97.5 85 20 107/83 (91) 97 04/02/19 07:47 Room Air 21 Laboratory Tests Test 04/01/19 17:00 04/02/19 08:01 Urine Color Pale yellow Urine Appearance Clear Urine pH 5 (4.5-8.0) Urine Specific [place] 1.010 (1.005-1.035) Urine Protein Negative (NEGATIVE) Urine Glucose (UA) Negative (NEGATIVE) Urine Ketones Negative (NEGATIVE) Urine Blood 1+ (NEGATIVE) H Urine Nitrite Negative (NEGATIVE) Urine Bilirubin Negative (NEGATIVE) Urine Urobilinogen Normal MG/DL (0.0-1.0) Urine Leukocyte Esterase Negative (NEGATIVE) Urine RBC 0-2 /HPF (0 - 0) H Urine WBC 0-2 /HPF (0 - 0) Urine Squamous Epithelial Cells None /LPF (NONE/OCC) Urine Bacteria Few /HPF (NONE) Urine Eosinophils None seen (NONE SEEN) Urine Osmolality 458 mOsm/kg (429-449) H Urine Random Creatinine Pending Urine Random Microalbumin Pending Urine Random Sodium 133 mmol/L (20-110) H Urine Microalbumin/Creatinine Ratio Pending White Blood Count 7.0 K/UL (4.8-10.8) Red Blood Count 4.86 M/UL (4.70-6.10) Hemoglobin 15.3 G/DL (14.2-18.0) Hematocrit 45.3 % (42.0-52.0) Mean Corpuscular Volume 93 FL (80-99) Mean Corpuscular Hemoglobin 31.4 PG (27.0-31.0) H Mean Corpuscular Hemoglobin Concent 33.8 G/DL (32.0-36.0) Red Cell Distribution Width 13.2 % (11.6-14.8) Platelet Count 173 K/UL (150-450) Mean Platelet Volume 6.9 FL (6.5-10.1) Neutrophils (%) (Auto) 62.4 % (45.0-75.0) Lymphocytes (%) (Auto) 25.9 % (20.0-45.0) Monocytes (%) (Auto) 7.8 % (1.0-10.0) Eosinophils (%) (Auto) 3.0 % (0.0-3.0) Basophils (%) (Auto) 0.9 % (0.0-2.0) Erythrocyte Sedimentation Rate 23 MM/HR (0-20) H Sodium Level 142 MMOL/L (136-145) Potassium Level 4.6 MMOL/L (3.5-5.1) Chloride Level 108 MMOL/L (98-107) H Carbon Dioxide Level 29 MMOL/L (21-32) Anion Gap 5 mmol/L (5-15) Blood Urea Nitrogen 12 mg/dL (7-18) Creatinine 1.3 MG/DL (0.55-1.30) Estimat Glomerular Filtration Rate 54.9 mL/min (>60) Glucose Level 128 MG/DL (74-106) H Calcium Level 8.8 MG/DL (8.5-10.1) Phosphorus Level 2.6 MG/DL (2.5-4.9) Magnesium Level 2.0 MG/DL (1.8-2.4) Total Bilirubin 0.7 MG/DL (0.2-1.0) Aspartate Amino Transf (AST/SGOT) 19 U/L (15-37) Alanine Aminotransferase (ALT/SGPT) 20 U/L (12-78) Alkaline Phosphatase 73 U/L (46-116) C-Reactive Protein, Quantitative 1.5 mg/dL (0.00-0.90) H Total Protein 6.5 G/DL (6.4-8.2) Albumin 3.1 G/DL (3.4-5.0) L Globulin 3.4 g/dL Albumin/Globulin Ratio 0.9 (1.0-2.7) L Microbiology Date/Time Source Procedure Growth Status 03/31/19 18:30 Blood Blood Culture - Preliminary NO GROWTH AFTER 24 HOURS Resulted 03/31/19 18:15 Blood Blood Culture - Preliminary NO GROWTH AFTER 24 HOURS Resulted 03/31/19 17:52 Urine,Clean Catch Urine Culture - Preliminary NO GROWTH AFTER 24 HOURS Resulted 03/31/19 21:30 Rectum Received Intake and Output 04/01/19 04/02/19 18:59 06:59 Intake Total 1400 ml Output Total 900 ml Balance 500 ml Intake Oral 820 ml IV Total 580 ml Output Urine Total 900 ml # Voids 4 Objective PHYSICAL EXAMINATION: V GENERAL: The patient is awake and responsive, in no acute distress. HEAD AND NECK: Pupils are reactive to light. Extraocular movements intact. Neck was supple. No JVD. LUNGS: Good air entry. No wheezing or rales. HEART: S1, S2. Irregular. No murmurs or gallops. ABDOMEN: Soft, nondistended, and nontender. Mildly obese. EXTREMITIES: No cyanosis, clubbing, or edema. NEUROLOGIC: WEATHER ALGORITHM SCIENTIST II through XII grossly intact. Motor is 5/5 in all extremities. Assessment/Plan Assessment/Plan ASSESSMENT: 1. Hypotension, possible due to the severe volume depletion and dehydration, however, cannot rule out infectious etiology such as UTI. 2. Sepsis, possible due to urinary tract infection. 3. Atrial fibrillation. 4. Acute kidney injury. 5. Dyslipidemia. PLAN: Admit the patient to tele. We will follow up with 2D echo. Follow up with the cultures including urine culture, broad-spectrum antibiotic with vancomycin and cefepime. Continue under rivaroxaban for atrial fibrillation. Code status is Full Code. DVT prophylaxis, he is under Xarelto. Code status is Full Code. Follow up with Dr. Rosario, Pulmonary Critical Care. Mega Robbins MD Apr 02, 2019 16:26
--- NOTE | 2019-04-02 16:27 | Internal Med Progress Note ---
Subjective Physician Name Mega Robbins Attending Physician Mike Longo MD Current Medications Medications (Trade) Dose Ordered Sig/Odalys Route PRN Reason Start Time Stop Time Status Last Admin Dose Admin Acetaminophen (Tylenol) 650 mg Q4H PRN ORAL Mild Pain/Temp > 100.5 04/01/19 16:00 05/01/19 15:59 04/02/19 09:27 Albuterol/ Ipratropium (Albuterol/ Ipratropium) 3 ml Q4H PRN HHN Shortness of Breath 04/01/19 16:00 04/06/19 15:59 Atorvastatin Calcium (Lipitor) 40 mg BEDTIME ORAL 04/01/19 21:00 05/01/19 20:59 04/01/19 22:11 Cefepime HCl 1 gm/ Dextrose 55 ml @ 110 mls/hr EVERY 12 HOURS IVPB 04/01/19 21:00 04/08/19 08:59 04/02/19 08:30 Dextrose/Sodium Chloride 1,000 ml @ 75 mls/hr [id number] IV 04/01/19 15:15 04/30/19 23:44 04/02/19 05:07 Pantoprazole (Protonix) 40 mg DAILY IVP 04/02/19 09:00 05/01/19 08:59 04/02/19 08:28 Rivaroxaban (Xarelto) 15 mg QPM ORAL 04/01/19 16:30 05/01/19 16:29 04/01/19 16:27 Vancomycin HCl (Vanco rx to dose) 1 ea DAILY PRN MISC Per rx protocol 04/02/19 09:00 04/30/19 23:44 Vancomycin/Sodium Chloride 275 ml @ 183.333 mls/hr Q24H IVPB 04/01/19 23:00 04/06/19 22:59 04/01/19 23:31 Zolpidem Tartrate (Ambien) 5 mg HSPRN PRN ORAL Insomnia 04/01/19 23:45 04/08/19 23:44 Allergies: Coded Allergies: No Known Allergies (Unverified , 03/31/19) Objective Last Vital Signs Date Time Temp Pulse Resp B/P (MAP) Pulse Ox O2 Delivery O2 Flow Rate FiO2 04/02/19 12:00 97.5 85 20 107/83 (91) 97 04/02/19 07:47 Room Air 21 Laboratory Tests Test 04/01/19 17:00 04/02/19 08:01 Urine Color Pale yellow Urine Appearance Clear Urine pH 5 (4.5-8.0) Urine Specific [place] 1.010 (1.005-1.035) Urine Protein Negative (NEGATIVE) Urine Glucose (UA) Negative (NEGATIVE) Urine Ketones Negative (NEGATIVE) Urine Blood 1+ (NEGATIVE) H Urine Nitrite Negative (NEGATIVE) Urine Bilirubin Negative (NEGATIVE) Urine Urobilinogen Normal MG/DL (0.0-1.0) Urine Leukocyte Esterase Negative (NEGATIVE) Urine RBC 0-2 /HPF (0 - 0) H Urine WBC 0-2 /HPF (0 - 0) Urine Squamous Epithelial Cells None /LPF (NONE/OCC) Urine Bacteria Few /HPF (NONE) Urine Eosinophils None seen (NONE SEEN) Urine Osmolality 458 mOsm/kg (429-449) H Urine Random Creatinine Pending Urine Random Microalbumin Pending Urine Random Sodium 133 mmol/L (20-110) H Urine Microalbumin/Creatinine Ratio Pending White Blood Count 7.0 K/UL (4.8-10.8) Red Blood Count 4.86 M/UL (4.70-6.10) Hemoglobin 15.3 G/DL (14.2-18.0) Hematocrit 45.3 % (42.0-52.0) Mean Corpuscular Volume 93 FL (80-99) Mean Corpuscular Hemoglobin 31.4 PG (27.0-31.0) H Mean Corpuscular Hemoglobin Concent 33.8 G/DL (32.0-36.0) Red Cell Distribution Width 13.2 % (11.6-14.8) Platelet Count 173 K/UL (150-450) Mean Platelet Volume 6.9 FL (6.5-10.1) Neutrophils (%) (Auto) 62.4 % (45.0-75.0) Lymphocytes (%) (Auto) 25.9 % (20.0-45.0) Monocytes (%) (Auto) 7.8 % (1.0-10.0) Eosinophils (%) (Auto) 3.0 % (0.0-3.0) Basophils (%) (Auto) 0.9 % (0.0-2.0) Erythrocyte Sedimentation Rate 23 MM/HR (0-20) H Sodium Level 142 MMOL/L (136-145) Potassium Level 4.6 MMOL/L (3.5-5.1) Chloride Level 108 MMOL/L (98-107) H Carbon Dioxide Level 29 MMOL/L (21-32) Anion Gap 5 mmol/L (5-15) Blood Urea Nitrogen 12 mg/dL (7-18) Creatinine 1.3 MG/DL (0.55-1.30) Estimat Glomerular Filtration Rate 54.9 mL/min (>60) Glucose Level 128 MG/DL (74-106) H Calcium Level 8.8 MG/DL (8.5-10.1) Phosphorus Level 2.6 MG/DL (2.5-4.9) Magnesium Level 2.0 MG/DL (1.8-2.4) Total Bilirubin 0.7 MG/DL (0.2-1.0) Aspartate Amino Transf (AST/SGOT) 19 U/L (15-37) Alanine Aminotransferase (ALT/SGPT) 20 U/L (12-78) Alkaline Phosphatase 73 U/L (46-116) C-Reactive Protein, Quantitative 1.5 mg/dL (0.00-0.90) H Total Protein 6.5 G/DL (6.4-8.2) Albumin 3.1 G/DL (3.4-5.0) L Globulin 3.4 g/dL Albumin/Globulin Ratio 0.9 (1.0-2.7) L Microbiology Date/Time Source Procedure Growth Status 03/31/19 18:30 Blood Blood Culture - Preliminary NO GROWTH AFTER 24 HOURS Resulted 03/31/19 18:15 Blood Blood Culture - Preliminary NO GROWTH AFTER 24 HOURS Resulted 03/31/19 17:52 Urine,Clean Catch Urine Culture - Preliminary NO GROWTH AFTER 24 HOURS Resulted 03/31/19 21:30 Rectum Received Intake and Output 04/01/19 04/02/19 18:59 06:59 Intake Total 1400 ml Output Total 900 ml Balance 500 ml Intake Oral 820 ml IV Total 580 ml Output Urine Total 900 ml # Voids 4 Objective PHYSICAL EXAMINATION: V GENERAL: The patient is awake and responsive, in no acute distress. HEAD AND NECK: Pupils are reactive to light. Extraocular movements intact. Neck was supple. No JVD. LUNGS: Good air entry. No wheezing or rales. HEART: S1, S2. Irregular. No murmurs or gallops. ABDOMEN: Soft, nondistended, and nontender. Mildly obese. EXTREMITIES: No cyanosis, clubbing, or edema. NEUROLOGIC: DIAL MOUNTER II through XII grossly intact. Motor is 5/5 in all extremities. Mega Robbins MD Apr 02, 2019 16:27
--- NOTE | 2019-04-02 17:00 | NUR ---
NURSE NOTES: The patient is stable without acute distress or shortness of breath. Will continue plan of care.
[2019-04-02] MEDS ORDERED: NS 275ml ONE (17:05)
[2019-04-02] MEDS ORDERED: D5NS 1000ml IV ONE (17:05)
[2019-04-02] MEDS ORDERED: Tubing IV Secondary IV ONE (17:05)
--- NOTE | 2019-04-02 17:17 | Cardiology Report ---
APPROVED REPORT EKG Measurement Heart [id number] Atrial fibrillation Indeterminate axis Low voltage QRS Cannot rule out Anterior infarct, age undetermined Abnormal ECG
--- NOTE | 2019-04-02 17:35 | Cardiology Report ---
APPROVED REPORT EKG Measurement Heart [id number] Atrial fibrillation Left axis deviation Low voltage QRS Cannot rule out Anterior infarct, age undetermined Abnormal ECG
--- NOTE | 2019-04-02 19:25 | NUR ---
NURSE NOTES: Received report from Bessie Dillon RN. Patient in bed AAO X4 with no complaints of acute pain or distress noted. Kept clean, dry, and comfortable in bed. On RA with no S/S of SOB or resp. distress observed. IV line intact and patent and continuous cardiac monitoring per protocol and Hx of Afib. Patient ambulates with minimal assistance from staff. Safety precaution in place; siderails X2 up, call light within reach, bed in lowest position, brakes and alarm on at all times. Needs and wants anticipated and attended. Will continue plan of care and monitor for any changes noted. Will closely monitor BP.
[2019-04-02 20:00] VITALS: BP 98/58
[2019-04-02] MEDS: Atorvastatin 20mg tab ORAL SCH (20:25)
--- NOTE | 2019-04-02 22:29 | Cardiology Progress Note ---
Assessment/Plan Assessment/Plan episode of hypotension resolved Subjective Subjective the patient is resting comfortably in bed, reports feeling well Objective Last 24 Hour Vital Signs Date Time Temp Pulse Resp B/P (MAP) Pulse Ox O2 Delivery O2 Flow Rate FiO2 04/02/19 21:00 Room Air 04/02/19 20:00 98.5 67 19 98/58 (71) 95 04/02/19 19:54 65 18 97 Room Air 21 04/02/19 16:00 54 04/02/19 16:00 98.3 67 20 109/50 (69) 96 04/02/19 12:00 97.5 85 20 107/83 (91) 97 04/02/19 12:00 102 04/02/19 09:00 Room Air 04/02/19 08:00 86 04/02/19 08:00 97.7 61 20 100/72 (81) 97 04/02/19 07:47 62 18 97 Room Air 21 04/02/19 04:00 98.1 100 20 114/68 (83) 99 04/02/19 04:00 71 04/02/19 00:00 97.9 69 20 101/55 (70) 97 General Appearance: no apparent distress EENT: PERRL/EOMI Neck: non-tender Rhythm: Afib Cardiovascular: tachycardia Respiratory/Chest: lungs clear Abdomen: soft Extremities: normal range of motion Intake and Output 04/01/19 04/02/19 19:00 07:00 Intake Total 1325 ml Output Total 900 ml Balance 425 ml Intake Oral 820 ml IV Total 505 ml Output Urine Total 900 ml # Voids 4 Laboratory Tests Test 04/02/19 08:01 White Blood Count 7.0 K/UL (4.8-10.8) Red Blood Count 4.86 M/UL (4.70-6.10) Hemoglobin 15.3 G/DL (14.2-18.0) Hematocrit 45.3 % (42.0-52.0) Mean Corpuscular Volume 93 FL (80-99) Mean Corpuscular Hemoglobin 31.4 PG (27.0-31.0) H Mean Corpuscular Hemoglobin Concent 33.8 G/DL (32.0-36.0) Red Cell Distribution Width 13.2 % (11.6-14.8) Platelet Count 173 K/UL (150-450) Mean Platelet Volume 6.9 FL (6.5-10.1) Neutrophils (%) (Auto) 62.4 % (45.0-75.0) Lymphocytes (%) (Auto) 25.9 % (20.0-45.0) Monocytes (%) (Auto) 7.8 % (1.0-10.0) Eosinophils (%) (Auto) 3.0 % (0.0-3.0) Basophils (%) (Auto) 0.9 % (0.0-2.0) Erythrocyte Sedimentation Rate 23 MM/HR (0-20) H Sodium Level 142 MMOL/L (136-145) Potassium Level 4.6 MMOL/L (3.5-5.1) Chloride Level 108 MMOL/L (98-107) H Carbon Dioxide Level 29 MMOL/L (21-32) Anion Gap 5 mmol/L (5-15) Blood Urea Nitrogen 12 mg/dL (7-18) Creatinine 1.3 MG/DL (0.55-1.30) Estimat Glomerular Filtration Rate 54.9 mL/min (>60) Glucose Level 128 MG/DL (74-106) H Calcium Level 8.8 MG/DL (8.5-10.1) Phosphorus Level 2.6 MG/DL (2.5-4.9) Magnesium Level 2.0 MG/DL (1.8-2.4) Total Bilirubin 0.7 MG/DL (0.2-1.0) Aspartate Amino Transf (AST/SGOT) 19 U/L (15-37) Alanine Aminotransferase (ALT/SGPT) 20 U/L (12-78) Alkaline Phosphatase 73 U/L (46-116) C-Reactive Protein, Quantitative 1.5 mg/dL (0.00-0.90) H Total Protein 6.5 G/DL (6.4-8.2) Albumin 3.1 G/DL (3.4-5.0) L Globulin 3.4 g/dL Albumin/Globulin Ratio 0.9 (1.0-2.7) L Microbiology Date/Time Source Procedure Growth Status 03/31/19 18:30 Blood Blood Culture - Preliminary NO GROWTH AFTER 24 HOURS Resulted 03/31/19 18:15 Blood Blood Culture - Preliminary NO GROWTH AFTER 24 HOURS Resulted 03/31/19 17:52 Urine,Clean Catch Urine Culture - Preliminary NO GROWTH AFTER 24 HOURS Resulted 03/31/19 21:30 Rectum Received Izabela Maurice MD Apr 02, 2019 22:29
[2019-04-02] MEDS: Vancomycin 1.5gm/NS Premix 275 ML IVPB SCH (22:49)
[2019-04-03] VITALS: BP 102/61
[2019-04-03 04:00] VITALS: BP 99/59
[2019-04-03] MEDS: D5NS 1,000 ML IV SCH (06:05)
--- NOTE | 2019-04-03 07:10 | NUR ---
HAND-OFF: Report given to Agueda Castle RN. Patient in bed with no complaints of distress. Ednorsed plan of care.
--- NOTE | 2019-04-03 07:32 | NUR ---
NURSE NOTES: Received report from DEDE Lunsford. Patient vss and bed in lowest , locked postion with call alas and urinal in reach,.
[2019-04-03 08:00] VITALS: BP 104/60
[2019-04-03] MEDS: Pantoprazole Inj IVP SCH (08:52)
[2019-04-03] MEDS: Cefepime HCl 1 GM in D5W 55 ML IVPB SCH (09:25)
[2019-04-03 10:22] LABS: BASOPHILS % (AUTO) 0.9 % (0.0-2.0); EOSINOPHILS % (AUTO) 2.5 % (0.0-3.0); HEMOGLOBIN 13.8 G/DL (14.2-18.0); LYMPHOCYTES % (AUTO) 28.8 % (20.0-45.0); MEAN CORPUSCULAR VOLUME 92 FL (80-99); MONOCYTES % (AUTO) 9.1 % (1.0-10.0); NEUTROPHILS % (AUTO) 58.7 % (45.0-75.0); PLATELET COUNT 142 K/UL (150-450); RED BLOOD COUNT 4.34 M/UL (4.70-6.10); RED CELL DISTRIBUTION WIDTH 13.4 % (11.6-14.8); WHITE BLOOD COUNT 6.1 K/UL (4.8-10.8)
[2019-04-03 10:31] LABS: ANION GAP 7 mmol/L (5-15); BLOOD UREA NITROGEN 12 mg/dL (7-18); CALCIUM 8.5 MG/DL (8.5-10.1); CARBON DIOXIDE 27 MMOL/L (21-32); CHLORIDE 109 MMOL/L (98-107); CREATININE 1.1 MG/DL (0.55-1.30); POTASSIUM 3.6 MMOL/L (3.5-5.1); SODIUM 143 MMOL/L (136-145)
--- NOTE | 2019-04-03 10:50 | NUR ---
NURSE NOTES: Patient aox4 with calm,cooperative affect. Patient stated he did not need an full time staff interpreter when this nurse communicated, thought he stated he spoke "[place] Urdu--I am from [place]". No sign of cardiac or respiratory distress--bretthing easily on RA and telemetry showing controlled AFib with HR in 60s. IV abx and fluid cont'd. Patient oob with steady gait and no c/o pain. Bed in lowest, locked position with call alas and urinal in reach.
--- NOTE | 2019-04-03 11:16 | NUR ---
CASE MANAGEMENT:REVIEW 04/03/2019 SI:ACUTE KIDNEY FAILURE. T 97.5 HR 70 RR 19 B/P 102/61 SATS 96% ON RA CL 109 GLU 132 IS: CEFEPIME IV Q12H LIPITOR PO QHS PROTONIX IV QD VANCO IV Q24H XARELTO PO QPM TELE STATUS DCP: PATIENT TO BE DISCHARGED TO HOME ONCE MEDICALLY CLEARED.
[2019-04-03 11:19] VITALS: BP 105/67
--- NOTE | 2019-04-03 11:54 | Cardiology Report ---
APPROVED REPORT EXAM: Two-dimensional and M-mode echocardiogram with Doppler and color Doppler. INDICATION Atrial Fibrillation M-Mode DIMENSIONS IVSd1.2 (0.7-1.1cm)Left Atrium (MM)3.9 (1.6-4.0cm) LVDd4.3 (3.5-5.6cm)Aortic Root3.3 (2.0-3.7cm) PWd1.1 (0.7-1.1cm)Aortic Cusp Exc.2.0 (1.5-2.0cm) LVDs2.6 (2.5-4.0cm) PWs1.9 cm Normal left ventricular chamber size, systolic function and wall motion. Left ventricular ejection fraction estimated to be 65 %. Mild left ventricular hypertrophy. Anterior Echo-free space, may be due to pericardial fat or effusion. Mild left atrial enlargement by 2-D. Right cardiac chamber sizes are within normal limits. Focal aortic valve sclerosis with adequate cusp excursion. Thickened mitral valve leaflets with normal excursion. Mitral annulus and aortic root calcification. Pulmonic valve not well visualized. Normal tricuspid valve structure. IVC is normal in size with physiological collapse. A color flow and spectral Doppler study was performed and revealed: No aortic regurgitation. Trace mitral regurgitation. Left ventricular diastolic function could not be determined due to A-Fib. Trace tricuspid regurgitation. Tricuspid systolic velocities suggests peak right ventricular systolic pressure of 23 mmHg. Mild pulmonic regurgitation present.
--- NOTE | 2019-04-03 14:25 | Internal Med Progress Note ---
Subjective Date of Service: Apr 03, 2019 Physician Name Mega Robbins Attending Physician Mike Longo MD Current Medications Medications (Trade) Dose Ordered Sig/Odalys Route PRN Reason Start Time Stop Time Status Last Admin Dose Admin Acetaminophen (Tylenol) 650 mg Q4H PRN ORAL Mild Pain/Temp > 100.5 04/01/19 16:00 05/01/19 15:59 04/02/19 20:54 Albuterol/ Ipratropium (Albuterol/ Ipratropium) 3 ml Q4H PRN HHN Shortness of Breath 04/01/19 16:00 04/06/19 15:59 Atorvastatin Calcium (Lipitor) 40 mg BEDTIME ORAL 04/01/19 21:00 05/01/19 20:59 04/02/19 20:25 Cefepime HCl 1 gm/ Dextrose 55 ml @ 110 mls/hr EVERY 12 HOURS IVPB 04/01/19 21:00 04/08/19 08:59 04/03/19 09:25 Dextrose/Sodium Chloride 1,000 ml @ 75 mls/hr [id number] IV 04/01/19 15:15 04/30/19 23:44 04/03/19 06:05 Pantoprazole (Protonix) 40 mg DAILY IVP 04/02/19 09:00 05/01/19 08:59 04/03/19 08:52 Rivaroxaban (Xarelto) 20 mg QPM ORAL 04/03/19 16:30 05/03/19 16:29 Vancomycin HCl (Vanco rx to dose) 1 ea DAILY PRN MISC Per rx protocol 04/02/19 09:00 04/30/19 23:44 Vancomycin/Sodium Chloride 275 ml @ 183.333 mls/hr Q24H IVPB 04/01/19 23:00 04/06/19 22:59 04/02/19 22:49 Zolpidem Tartrate (Ambien) 5 mg HSPRN PRN ORAL Insomnia 04/01/19 23:45 04/08/19 23:44 Allergies: Coded Allergies: No Known Allergies (Unverified , 03/31/19) ROS Limited/Unobtainable: No Constitutional: Reports: weakness HEENT: Reports: no symptoms Cardiovascular: Reports: no symptoms Respiratory: Reports: no symptoms Gastrointestinal/Abdominal: Reports: no symptoms Genitourinary: Reports: no symptoms Neurologic/Psychiatric: Reports: no symptoms Subjective 68 YO M admitted with gen weakness and fatigue. Now hypotension. Cover for Int Jan-Dr Longo Objective Last Vital Signs Date Time Temp Pulse Resp B/P (MAP) Pulse Ox O2 Delivery O2 Flow Rate FiO2 04/03/19 12:00 56 04/03/19 11:19 97.8 20 105/67 (80) 99 04/03/19 09:00 Room Air 04/03/19 07:54 21 Laboratory Tests Test 04/03/19 09:45 White Blood Count 6.1 K/UL (4.8-10.8) Red Blood Count 4.34 M/UL (4.70-6.10) L Hemoglobin 13.8 G/DL (14.2-18.0) L Hematocrit 40.0 % (42.0-52.0) L Mean Corpuscular Volume 92 FL (80-99) Mean Corpuscular Hemoglobin 31.8 PG (27.0-31.0) H Mean Corpuscular Hemoglobin Concent 34.5 G/DL (32.0-36.0) Red Cell Distribution Width 13.4 % (11.6-14.8) Platelet Count 142 K/UL (150-450) L Mean Platelet Volume 6.7 FL (6.5-10.1) Neutrophils (%) (Auto) 58.7 % (45.0-75.0) Lymphocytes (%) (Auto) 28.8 % (20.0-45.0) Monocytes (%) (Auto) 9.1 % (1.0-10.0) Eosinophils (%) (Auto) 2.5 % (0.0-3.0) Basophils (%) (Auto) 0.9 % (0.0-2.0) Sodium Level 143 MMOL/L (136-145) Potassium Level 3.6 MMOL/L (3.5-5.1) Chloride Level 109 MMOL/L (98-107) H Carbon Dioxide Level 27 MMOL/L (21-32) Anion Gap 7 mmol/L (5-15) Blood Urea Nitrogen 12 mg/dL (7-18) Creatinine 1.1 MG/DL (0.55-1.30) Estimat Glomerular Filtration Rate > 60 mL/min (>60) Glucose Level 132 MG/DL (74-106) H Calcium Level 8.5 MG/DL (8.5-10.1) Microbiology Date/Time Source Procedure Growth Status 03/31/19 18:30 Blood Blood Culture - Preliminary NO GROWTH AFTER 48 HOURS Resulted 03/31/19 18:15 Blood Blood Culture - Preliminary NO GROWTH AFTER 48 HOURS Resulted 03/31/19 21:30 Nasal Nares MRSA Culture - Final NO METHICILLIN RESISTANT STAPH AUREUS... Complete 03/31/19 17:52 Urine,Clean Catch Urine Culture - Final NO GROWTH AFTER 48 HOURS Complete 03/31/19 21:30 Rectum - Final NO CARBAPENEM-RESISTANT ENTEROBACTERI... Complete 03/31/19 21:30 Rectum VRE Culture - Final NO VANCOMYCIN RESISTANT ENTEROCOCCUS ... Complete Intake and Output 04/02/19 04/03/19 18:59 06:59 # Voids 4 Objective PHYSICAL EXAMINATION: V GENERAL: The patient is awake and responsive, in no acute distress. HEAD AND NECK: Pupils are reactive to light. Extraocular movements intact. Neck was supple. No JVD. LUNGS: Good air entry. No wheezing or rales. HEART: S1, S2. Irregular. No murmurs or gallops. ABDOMEN: Soft, nondistended, and nontender. Mildly obese. EXTREMITIES: No cyanosis, clubbing, or edema. NEUROLOGIC: PREPARATION PLANT SUPERVISOR II through XII grossly intact. Motor is 5/5 in all extremities. Assessment/Plan Assessment/Plan ASSESSMENT: 1. Hypotension, possible due to the severe volume depletion and dehydration, however, cannot rule out infectious etiology such as UTI. 2. Sepsis, possible due to urinary tract infection. 3. Atrial fibrillation. 4. Acute kidney injury. 5. Dyslipidemia. PLAN: Admit the patient to tele. cultures including urine and blood = no growth Continue vancomycin and cefepime. Continue under rivaroxaban for atrialfibrillation. Code status is Full Code. DVT prophylaxis=Xarelto. Dr. Rosario,=Pulmonary/Critical Care. Cardiology=Mega Robles MD Apr 03, 2019 14:25
[2019-04-03 16:00] VITALS: BP 119/79
[2019-04-03] MEDS ORDERED: Xarelto 10mg tab ORAL SCH (16:30)
[2019-04-03] MEDS ORDERED: XARELTO10 MG ORAL (16:55)
--- NOTE | 2019-04-03 17:30 | NUR ---
NURSE NOTES: DC to home per Dr Robbins with prescription for increase in Xarelto and all other meds to stay the same per . Called executive director of marketing [phone] for English [place] to review dc instructions , f/u appt (patient repeated that he understood he needs to contact his primary dr within 1 week), and medications. Also, reviewed adverse symptoms to watch for that would require calling [address] or returning to ER. Patient verified all belongings with him at time of dc. No further questions at this time. [employer] voucher given for [employer] and cab company called--30minute wait. Removed IV and id band. Originally attempted transport home with bus, but too confusing for patient and so safety concerns necessitated cab voucher. Patient is eager to go home and is aox4 with calm affect. Ate dinner before leaving. verified that patient's roomates were home at [address] [place] [address] to meet patient.
--- NOTE | 2019-04-03 20:13 | Cardiology Progress Note ---
Assessment/Plan Assessment/Plan doing well, no hypotension, asymptomatic Subjective Subjective the patient is resting comfortably in bed, reports feeling well Objective Last 24 Hour Vital Signs Date Time Temp Pulse Resp B/P (MAP) Pulse Ox O2 Delivery O2 Flow Rate FiO2 04/03/19 16:00 97.2 83 20 119/79 (92) 96 04/03/19 12:00 56 04/03/19 11:19 97.8 67 20 105/67 (80) 99 04/03/19 09:00 Room Air 04/03/19 08:00 97.9 68 20 104/60 (75) 98 04/03/19 08:00 62 04/03/19 07:54 67 16 98 Room Air 21 04/03/19 04:00 53 04/03/19 04:00 98.0 53 21 99/59 (72) 97 04/03/19 00:00 97.5 70 19 102/61 (75) 96 04/03/19 00:00 71 04/02/19 21:00 Room Air General Appearance: no apparent distress EENT: PERRL/EOMI Neck: no JVD Rhythm: Afib Cardiovascular: arrhythmia Respiratory/Chest: normal breath sounds Abdomen: soft Extremities: non-tender Intake and Output 04/02/19 04/03/19 18:59 06:59 # Voids 4 Laboratory Tests Test 04/03/19 09:45 White Blood Count 6.1 K/UL (4.8-10.8) Red Blood Count 4.34 M/UL (4.70-6.10) L Hemoglobin 13.8 G/DL (14.2-18.0) L Hematocrit 40.0 % (42.0-52.0) L Mean Corpuscular Volume 92 FL (80-99) Mean Corpuscular Hemoglobin 31.8 PG (27.0-31.0) H Mean Corpuscular Hemoglobin Concent 34.5 G/DL (32.0-36.0) Red Cell Distribution Width 13.4 % (11.6-14.8) Platelet Count 142 K/UL (150-450) L Mean Platelet Volume 6.7 FL (6.5-10.1) Neutrophils (%) (Auto) 58.7 % (45.0-75.0) Lymphocytes (%) (Auto) 28.8 % (20.0-45.0) Monocytes (%) (Auto) 9.1 % (1.0-10.0) Eosinophils (%) (Auto) 2.5 % (0.0-3.0) Basophils (%) (Auto) 0.9 % (0.0-2.0) Sodium Level 143 MMOL/L (136-145) Potassium Level 3.6 MMOL/L (3.5-5.1) Chloride Level 109 MMOL/L (98-107) H Carbon Dioxide Level 27 MMOL/L (21-32) Anion Gap 7 mmol/L (5-15) Blood Urea Nitrogen 12 mg/dL (7-18) Creatinine 1.1 MG/DL (0.55-1.30) Estimat Glomerular Filtration Rate > 60 mL/min (>60) Glucose Level 132 MG/DL (74-106) H Calcium Level 8.5 MG/DL (8.5-10.1) Microbiology Date/Time Source Procedure Growth Status 03/31/19 21:30 Nasal Nares MRSA Culture - Final NO METHICILLIN RESISTANT STAPH AUREUS... Complete 03/31/19 21:30 Rectum - Final NO CARBAPENEM-RESISTANT ENTEROBACTERI... Complete 03/31/19 21:30 Rectum VRE Culture - Final NO VANCOMYCIN RESISTANT ENTEROCOCCUS ... Complete Izabela Maurice MD Apr 03, 2019 20:13
--- NOTE | 2019-04-04 11:14 | Discharge Summary ---
Discharge Summary Discharge Summary _ DATE OF ADMISSION: 03/31/2019 DATE OF DISCHARGE: 04/03/2019 DISCHARGED BY: Dr. Longo REASON FOR ADMISSION: 68 years old male with past medical history of heart disease, hypertension, presented with complaints of one day of hypotension. Upon evaluation vital signs revealed hypotnsion. Laboratory work-up revealed no leukocytosis , stable hemoglobin and hematocrit. Stable platelet count. Urinalysis revealed +1 protein , moderate bacteria , and borderline pyuria. Chemistry showed BUN 25, creatinine 1.8. Troponin negative. pro BNP 737. EKG revealed atrial fibrillation with a controlled ventricular response. Lactic acid 1.4. Stable LFT and lipase. Chest x-ray demonstrated no acute cardiopulmonary pathology. In emergency department patient was placed a central line for possible pressors . Patient was provided with fluid resuscitation, pancultured and started on empiric antibiotics. Blood pressure did not respond to IV fluids , and patient started on Levophed. Patient admitted to ICU for further management. CONSULTANTS: pipe testing technician Dr. Martínez hospitalist Dr. Rosario [facility] COURSE: Patient initially admitted to ICU. Patient was on pressor, which titrated to keep mean arterial blood pressure above 65. Hemodynamic status was closely monitored. Patient was able to be weaned from pressors very quickly. Echocardiogram demonstrated preserved ejection fraction of 65% with mild left ventricular hypertrophy. No evidence of wall motion abnormality. Right ventricular systolic pressure of 23. Patient continued to be in atrial fibrillation, which per pipe testing technician was likely permanent. Heart rate was controlled. Patient started on anticoagulation with Xarelto. Blood pressure was improved and remained stable. Hemoglobin and hematocrit remained at baseline. Patient was cautioned on signs and symptoms of bleedings to report. Patient initially started on empiric antibiotic. Urine cultures were negative , blood cultures were negative. Antibiotic stopped. Supplemental oxygen was on board as needed to keep pulse oximetry above 92%. Pulse oximetry was stable on room air. Patient was continued on statin. Renal parameters and electrolytes were closely monitored, electrolytes corrected as needed and nephrotoxins were avoided. BUN from 25 down to 12 and creatinine from 1.8 down to 1.1 . Acute kidney injury was likely due to dehydration and resolved with IV fluids. GI prophylaxis provided. Supportive care provided. Patient clinically stabilized and was ready for discharge home. FINAL DIAGNOSES: Hypotension with shock Permanent atrial fibrillation Acute kidney injury due to hypovolemia- resolved Dehydration Dyslipidemia DISCHARGE MEDICATIONS: See Medication Reconciliation list. DISCHARGE INSTRUCTIONS: Patient was discharged home .. Follow up with primary care provider in one week. I have been assigned to dictate discharge summary for this account. I was not involved in the patient's management. Earlene Benz NP Apr 04, 2019 11:14
== END 2019-04-03 18:00 | disposition home or self-care (01) | DRG 720 ==
LOC: EDBD 17:15 → EMR 19:30 → EDBEDREQ 19:44 → ICU 20:01 → 2E 04-01 15:06
DX: A41.9 Sepsis, unspecified organism (principal); N17.9 Acute kidney failure, unspecified; N39.0 Urinary tract infection, site not specified; I48.91 Unspecified atrial fibrillation; I95.9 Hypotension, unspecified; E86.0 Dehydration; E78.5 Hyperlipidemia, unspecified; Z79.01 Long term (current) use of anticoagulants; I48.21 Permanent atrial fibrillation; I11.9 Hypertensive heart disease without heart failure
CPT/HCPCS: 36415; 71045; 76770; 80048; 80053; 81001; 81003; 82043; 82248; 82550; 82553; 83605; 83690; 83735; 83880; 83935; 84100; 84300; 84484; 84550; 85025; 85610; 85651; 85730; 86140; 87040; 87081; 87086; 89050; 93005; 93306; 94640; 94664; 96361; 96365; 96375; 99291; J7030; J7620